=== PATIENT | male | born 1955 | race Caucasian/White ===

== ENCOUNTER 2020-03-25 15:44 | Observation (INO) ==
[2020-03-25] MEDS ORDERED: 0.9 % Sodium Chloride 1,000 ML IVC ONE ×2 (16:03→20:24)
[2020-03-25 16:09] LABS: Basophils # 0.1 K/mcL (0.0-0.2); Basophils % 0.6 %; Eosinophils # 0.5 K/mcL (0.0-0.6); Eosinophils % 4.7 %; Hematocrit 45.6 % (37.5-50.1); Hemoglobin 15.2 g/dL (12.9-16.9); Immature Granulocytes % 0.4 % (0-4); Lymphocytes # 3.5 K/mcL (0.6-4.6); Lymphocytes % 31.8 %; Mean Corpuscular HGB Conc 33.3 g/dL (31.6-35.5); Mean Corpuscular Hemoglobin 29.3 pg (28.0-33.3); Mean Corpuscular Volume 87.9 fL (83.0-100.0); Mean Platelet Volume 8.9 fL (9.4-12.4); Monocytes # 0.7 K/mcL (0.0-1.3); Monocytes % 6.7 %; Neutrophils # 6.1 K/mcL (1.6-8.9); Platelet Count 238 K/mcL (140-400); Red Blood Count 5.19 M/mcL (4.19-5.50); Segmented Neutrophils % 55.8 %; White Blood Count 10.9 K/mcL (4.3-11.1)
[2020-03-25] MEDS ORDERED: Aspirin 81 MG TAB.CHEW PO ONE (16:16)
[2020-03-25 16:28] LABS: BUN/Creatinine Ratio 13 (6-26); Blood Urea Nitrogen 20 mg/dL (8-23); Carbon Dioxide 23 mEq/L (23-29); Chloride 101 mEq/L (98-107); Potassium 4.1 mEq/L (3.5-5.1); Sodium 134 mEq/L (136-145)
[2020-03-25 16:29] LABS: Calcium 10.1 mg/dL (8.6-10.3); Glucose 144 mg/dL (70-105); Osmolality,Calculated 283 (280-300); Troponin I < 0.03 ng/mL (< 0.04); eGFR For African Americans 55 (> 60); eGFR For Non-African Americans 46 (> 60)
[2020-03-25] MEDS ORDERED: *HR* FentaNYL (PF) 100 MCG/2 ML VIAL IVP ONE (16:44)
[2020-03-25] MEDS ORDERED: Isovue-370 500 ML BOTTLE IVP ONE (18:25)
[2020-03-25] MEDS ORDERED: *HR* Metoprolol 5 MG/5 ML VIAL IVP ONE (19:03)
[2020-03-25] MEDS ORDERED: Acetaminophen 325 MG TABLET PO PRN (19:44)
[2020-03-25] MEDS ORDERED: Naloxone 0.4 MG/ML INJ IVP PRN (19:44)
[2020-03-25] MEDS ORDERED: Ondansetron 4 MG/2 ML VIAL IVP PRN (19:44)
[2020-03-25] MEDS ORDERED: Nitroglycerin 0.4 MG TAB.SUBL SL PRN (20:33)
[2020-03-26 05:34] LABS: Basophils % 0.5 %; Eosinophils # 0.4 K/mcL (0.0-0.6); Eosinophils % 5.7 %; Hematocrit 40.3 % (37.5-50.1); Immature Granulocytes % 0.2 % (0-4); Lymphocytes % 31.4 %; Mean Corpuscular HGB Conc 32.8 g/dL (31.6-35.5); Mean Corpuscular Hemoglobin 30.1 pg (28.0-33.3); Mean Corpuscular Volume 91.8 fL (83.0-100.0); Monocytes # 0.6 K/mcL (0.0-1.3); Monocytes % 8.7 %; Neutrophils # 3.4 K/mcL (1.6-8.9); Platelet Count 155 K/mcL (140-400); Red Blood Count 4.39 M/mcL (4.19-5.50); Red Cell Distribution Width 12.2 % (11.5-14.5); Segmented Neutrophils % 53.5 %; White Blood Count 6.3 K/mcL (4.3-11.1)
[2020-03-26 05:42] LABS: Hemoglobin 13.2 g/dL (12.9-16.9)
[2020-03-26 05:50] LABS: Calcium 9.4 mg/dL (8.6-10.3); Chol/HDL Ratio 5.7 (0-4.9); Magnesium 1.9 mg/dL (1.6-2.6); Potassium 4.2 mEq/L (3.5-5.1)
[2020-03-26] MEDS ORDERED: *HR* Heparin 5,000 UNIT/ML VIAL SQ SCH (06:00)
[2020-03-26] MEDS ORDERED: Perflutren Lipid Microsphere 1.3 ML in 0.9 % Sodium Chloride 8.7 ML IVP PRN (06:51)
[2020-03-26] MEDS ORDERED: *HR* Heparin 5,000 UNIT/ML VIAL IVP PRN ×2 (08:57)
[2020-03-26] MEDS ORDERED: *HR* Heparin 5,000 UNIT/ML VIAL IVP ONE (08:57)
[2020-03-26] MEDS ORDERED: Heparin 25,000UNIT/250ML 1/2NS 25,000 UNIT/250 ML IV.SOLN IVC SCH (09:00)
[2020-03-26] MEDS ORDERED: Aspirin 81 MG TAB.CHEW PO SCH (09:00)
[2020-03-26 09:53] LABS: Estimated Average Glucose 123 mg/dl
[2020-03-26] MEDS ORDERED: Regadenoson 0.4 MG/5 ML SYRINGE IVP ONE (10:32)
[2020-03-26] MEDS ORDERED: Apixaban 5 MG TABLET PO SCH (11:15)
[2020-03-26 14:46] LABS: Hemoglobin 13.6 g/dL (12.9-16.9); Mean Corpuscular HGB Conc 32.4 g/dL (31.6-35.5); Mean Corpuscular Hemoglobin 29.1 pg (28.0-33.3); Mean Corpuscular Volume 89.9 fL (83.0-100.0); Mean Platelet Volume 8.7 fL (9.4-12.4); Platelet Count 152 K/mcL (140-400); Red Blood Count 4.67 M/mcL (4.19-5.50); Red Cell Distribution Width 12.3 % (11.5-14.5); White Blood Count 7.3 K/mcL (4.3-11.1)
[2020-03-26 14:53] LABS: Heparin anti-factor XA UFH < 0.04 IU/mL (0.30-0.70)
[2020-03-26 14:54] LABS: INR 1.1; Prothrombin Time 12.4 Seconds (9.4-12.1)
[2020-03-26 15:52] VITALS: BP 128/85
== END 2020-03-26 16:40 | disposition home or self-care (01) ==
LOC: EMEROOARM 15:44 → 2ANU 15:44
PROVIDERS: ADMIT Internal Medicine; ATTEND Internal Medicine